=== PATIENT | female | born 1960 | race Caucasian/White ===

== ENCOUNTER → 2018-03-24 | Outpatient (CLI) | payer OTHER ==
--- NOTE | 2018-03-24 10:00 | BD ---
EXAMINATION TYPE: Axial Bone Density DATE OF EXAM: 03/24/2018 COMPARISON: 09.15.2004 CLINICAL HISTORY: 57 YR OLD FEMALE.....ICD-10 CODE: POST ELIANA W/O HRT Height: 58 Weight: 99 FRAX RISK QUESTIONS: Secondary Osteoporosis: YES 3. Menopause before 45: YES, AT 41 Current Tobacco Use: YES, 1/2 PAC DAILY RISK FACTORS HISTORY OF: Family History of Osteoporosis: NONE KNOWN Active: YES Diet low in dairy products/other sources of calcium: Postmenopausal woman: YES AT AGE 41, TOTAL HYST BY THAT TIME Take estrogen and/or progesterone medications: HORMONES IN PAST FOR 1 YR Lost more than 2 inches in height since high school: MEDICATIONS: Thyroid Medications: YES, SYNTHROID, FOR APROX 8-10 YRS Additional Medications: BP MEDS, VIT D AND CALCIUM, Additional History: HYPERTENSION EXAM MEASUREMENTS: Bone mineral densitometry was performed using the [employer] System. Bone mineral density as measured about the Lumbar spine is: ----- L1-L4(G/cm2): 1.308 T Score Values are as follows: ----- L1: 0.1 ----- L2: 0.8 ----- L3: 1.5 ----- L4: 1.4 ----- L1-L4: 1.1 Bone mineral density has: Increased 6.8% since study of: 09.15.2004 Bone mineral density about the R hip (g/cm2): 1.027 Bone mineral density about the L hip (g/cm2): 1.035 T Score values are as follows: -----R Neck: -0.7 -----L Neck: -0.2 -----R Total: 0.2 -----L Total: 0.2 Bone mineral density has: Increased 3.9% since study of: 09.15.2004 FRAX%S: THERE IS A 5.0% CHANCE OF A MAJOR OSTEOPOROTIC FX AND A 0.3% FOR HIP FX....PROBABILITY OF FX IN 10 YRS TIME IMPRESSION: Normal (Values between +1 and -1 indicate normal bone mass). Consider repeating this study in 5 year s or sooner if there is some new clinical indication. NOTE: T-SCORE=SD OF THE YOUNG ADULT MEAN.
--- NOTE | 2018-03-27 14:09 | MM ---
Reason for exam: screening (asymptomatic). Last mammogram was performed 1 year and 8 months ago. History: Patient is postmenopausal and is nulliparous. Taking estrogen for 1 year beginning at age 49. Physical Findings: A clinical breast exam by your physician is recommended on an annual basis and results should be correlated with mammographic findings. MG Screening Mammo w CAD Bilateral CC and MLO view(s) were taken. Prior study comparison: August 03, 2016, bilateral MG screening mammo w CAD. April 13, 2012, bilateral digital screening mammo w/CAD. The breast tissue is extremely dense which could obscure a lesion on mammography. No significant changes when compared with prior studies. ASSESSMENT: Benign, BI-RAD 2 RECOMMENDATION: Routine screening mammogram of both breasts in 1 year.
== END | disposition home or self-care (01) ==
LOC: RADMAMWWP 07:58
PROVIDERS: ATTEND Family Medicine
DX: Z12.31 Encounter for screening mammogram for malignant neoplasm of breast (principal); Z13.820 Encounter for screening for osteoporosis
CPT/HCPCS: 77067; 77080

== ENCOUNTER → 2019-06-27 | Outpatient (CLI) | payer OTHER ==
--- NOTE | 2019-06-27 10:01 | US ---
EXAMINATION TYPE: US renal artery duplex complet DATE OF EXAM: 06/27/2019 COMPARISON: NONE CLINICAL HISTORY: I10 Hypertension. Pt states HTN x many years MEASUREMENTS: RENAL SIZE: Rt Kidney: 10.3 x 4.0 x 4.9 cm Lt Kidney: 9.2 x 5.2 x 4.1 cm RESISTANCE INDEX Right: 0.6 Left: 0.7 RA/AO RATIO (< 3.5 ) Right: 3.4 Left: 4.0 RA VELOCITY ( < 180 cm/s) Right: 145.3 Left: 184.6 Diffuse marked atherosclerosis of aorta, left mid renal artery stenosis with highest velocity >180 cm/s (184.6), left RA/AO ratio also abnormal at 4.0 (normal < 3.5) . Incidentally noted simple appe aring left renal cyst measuring 1.7 x 1.2 x 1.5 cm. Additional smaller probable cyst measuring 1.1 x 0.9 x 0.9 cm. IMPRESSION: 1. Findings compatible with renal arterial stenosis on the left with highest velocity in the mid left renal artery. 2. No sonographic evidence of renal arterial stenosis on the right. 3. Severe atherosclerosis of the abdominal aorta. 4. Left renal cyst and smaller probable second left renal cyst.
== END | disposition home or self-care (01) ==
LOC: RADUSWWP 08:57
PROVIDERS: ATTEND Family Medicine
DX: I70.0 Atherosclerosis of aorta (principal); N28.1 Cyst of kidney, acquired; I10 Essential (primary) hypertension
CPT/HCPCS: 93975

== ENCOUNTER → 2019-12-31 | Outpatient (CLI) | payer OTHER | END | disposition home or self-care (01) | CPT/HCPCS: 74174; Q9967 ==

== ENCOUNTER → 2020-07-07 | Outpatient (CLI) | payer OTHER ==
--- NOTE | 2020-07-08 11:45 | MM ---
Reason for exam: screening (asymptomatic). Last mammogram was performed 2 years and 3 months ago. History: Patient is postmenopausal and is nulliparous. Taking estrogen for 1 year beginning at age 49. Physical Findings: A clinical breast exam by your physician is recommended on an annual basis and results should be correlated with mammographic findings. MG Screening Mammo w CAD Bilateral CC and MLO view(s) were taken. Prior study comparison: March 24, 2018, bilateral MG screening mammo w CAD. August 03, 2016, bilateral MG screening mammo w CAD. The breast tissue is heterogeneously dense. This may lower the sensitivity of mammography. No significant changes when compared with prior studies. ASSESSMENT: Benign, BI-RAD 2 RECOMMENDATION: Routine screening mammogram of both breasts in 1 year.
== END | disposition home or self-care (01) ==
LOC: RADMAMWWP 07:59
PROVIDERS: ATTEND Family Medicine
DX: Z12.31 Encounter for screening mammogram for malignant neoplasm of breast (principal)
CPT/HCPCS: 77067

== ENCOUNTER → 2021-08-31 | Outpatient (CLI) | payer OTHER ==
--- NOTE | 2021-09-02 10:24 | MM ---
Reason for exam: screening (asymptomatic). Last mammogram was performed 1 year and 2 months ago. History: Patient is postmenopausal and is nulliparous. Taking estrogen for 1 year beginning at age 49. Physical Findings: A clinical breast exam by your physician is recommended on an annual basis and results should be correlated with mammographic findings. MG Screening Mammo w CAD Bilateral CC and MLO view(s) were taken. Prior study comparison: July 07, 2020, bilateral MG screening mammo w CAD. March 24, 2018, bilateral MG screening mammo w CAD. The breast tissue is heterogeneously dense. This may lower the sensitivity of mammography. There is no discrete abnormality. ASSESSMENT: Negative, BI-RAD 1 RECOMMENDATION: Routine screening mammogram of both breasts in 1 year.
== END | disposition home or self-care (01) ==
LOC: RADMAMWWP 14:24
PROVIDERS: ATTEND Family Medicine
DX: Z12.31 Encounter for screening mammogram for malignant neoplasm of breast (principal)
CPT/HCPCS: 77067

== ENCOUNTER → 2022-10-18 | Outpatient (CLI) | payer OTHER ==
--- NOTE | 2022-10-18 16:26 | MM ---
Reason for Exam: Screening (asymptomatic). Last mammogram was performed 1 year(s) and 2 month(s) ago. Patient History: Menarche at age 15. Patient has no children. Left ovary removed at age 41. Right ovary removed at age 41. Hysterectomy at age 41. Postmenopausal. Currently using Estrogen, beginning at age 49 for 1 year. Risk Values: Shanda 5 year model risk: 1.6%. NCI Lifetime model risk: 8.1%. Prior Study Comparison: 03/24/2018 Bilateral Screening Mammogram, [facility]. 07/07/2020 Bilateral Screening Mammogram, [facility]. 08/31/2021 Bilateral Screening Mammogram, [facility]. Tissue Density: The breast tissue is heterogeneously dense. This may lower the sensitivity of mammography. Findings: Analyzed By CAD. There is no suspicious group of microcalcifications or new suspicious mass in either breast. Overall Assessment: Negative, BI-RAD 1 Management: Screening Mammogram of both breasts in 1 year. A clinical breast exam by your physician is recommended on an annual basis and results should be correlated with mammographic findings. Electronically signed and approved by: Tristan Camargo M.D.
== END | disposition home or self-care (01) ==
LOC: RADMAMWWP 07:09
PROVIDERS: ATTEND Family Medicine
DX: Z12.31 Encounter for screening mammogram for malignant neoplasm of breast (principal); Z78.0 Asymptomatic menopausal state
CPT/HCPCS: 77063; 77067

== ENCOUNTER → 2023-12-02 | Outpatient (CLI) | payer OTHER ==
--- NOTE | 2023-12-02 19:08 | MM ---
Reason for Exam: Screening (asymptomatic). Last mammogram was performed 1 year(s) and 1 month(s) ago. Patient History: Menarche at age 15. Patient has no children. Left ovary removed at age 41. Right ovary removed at age 41. Hysterectomy at age 41. Postmenopausal. Currently using Estrogen, beginning at age 49 for 1 year. Niece had breast cancer, age 40. Risk Values: Shanda 5 year model risk: 1.6%. NCI Lifetime model risk: 7.9%. Prior Study Comparison: 07/07/2020 Bilateral Screening Mammogram, [facility]. 08/31/2021 Bilateral Screening Mammogram, [facility]. 10/18/2022 Bilateral MG 3D screening mammo w/cad, [facility]. Tissue Density: The breast tissue is heterogeneously dense. This may lower the sensitivity of mammography. Findings: Analyzed By CAD. There is an area of asymmetric density superior right MLO view and anterior to middle depth which is more defined. This may represent superimposition shadow but further evaluation is recommended. Otherwise, no significant change. Overall Assessment: Incomplete: need additional imaging evaluation, BI-RAD 0 Management: Special View Mammogram of the right breast. Diagnostic Breast Ultrasound of the right breast. Additional views to include spot 3-D MLO and 3-D lateral views. Subsequent superior half right breast ultrasound.. [facility] will attempt to contact patient to return for supplemental views and ultrasound if indicated. Electronically signed and approved by: Maria Fernanda Lopez M.D. Radiologist
== END | disposition home or self-care (01) ==
LOC: RADMAMWWP 08:01
PROVIDERS: ATTEND Family Medicine
DX: Z12.31 Encounter for screening mammogram for malignant neoplasm of breast (principal); Z78.0 Asymptomatic menopausal state; Z85.3 Personal history of malignant neoplasm of breast
CPT/HCPCS: 77063; 77067

== ENCOUNTER → 2023-12-07 | Outpatient (CLI) | payer OTHER ==
--- NOTE | 2023-12-07 10:18 | MM ---
Reason for Exam: Follow-up at short interval from prior study. Last screening mammogram was performed less than 1 month ago. Patient History: Menarche at age 15. Patient has no children. Left ovary removed at age 41. Right ovary removed at age 41. Hysterectomy at age 41. Postmenopausal. Currently using Estrogen, beginning at age 49 for 1 year. Niece had breast cancer, age 40. Risk Values: Shanda 5 year model risk: 1.6%. NCI Lifetime model risk: 7.9%. Tissue Density: Right: The breast tissue is heterogeneously dense. This may lower the sensitivity of mammography. Findings: Analyzed By CAD. The questioned area of central superior asymmetric density on the MLO view does not persist on additional views. Findings compatible with superimposition shadow. Overall Assessment: Benign, BI-RAD 2 Management: Screening Mammogram of both breasts in 1 year. Findings compatible with superimposition shadow. No ultrasound needed. Results were given to the patient verbally at the time of exam. Patient should continue monthly self-breast exams. A clinical breast exam by your physician is recommended on an annual basis. This exam should not preclude additional follow-up of suspicious palpable abnormalities. Note on Shanda scores and lifetime risk: 1. A Shanda score greater than 3% is considered moderate risk. If this is the case, consider specialist referral to assess eligibility for a risk reducing agent. 2. If overall lifetime risk for the development of breast cancer is 20% or higher, the patient may qualify for future screening with alternating mammogram and breast MRI. Electronically signed and approved by: Maria Fernanda Lopez M.D. Radiologist
== END | disposition home or self-care (01) ==
LOC: RADMAMWWP 09:39
PROVIDERS: ATTEND Family Medicine
DX: R92.331 Mammographic heterogeneous density, right breast (principal); Z78.0 Asymptomatic menopausal state
CPT/HCPCS: 77061; 77065

== ENCOUNTER → 2025-01-30 | Outpatient (CLI) | payer BC ==
--- NOTE | 2025-01-30 07:32 | MM ---
Reason for Exam: Screening (asymptomatic). Last mammogram was performed 1 year(s) and 2 month(s) ago. Patient History: Menarche at age 15. Patient has no children. Left ovary removed at age 41. Right ovary removed at age 41. Hysterectomy at age 41. Postmenopausal. Currently using Estrogen, beginning at age 49 for 1 year. Niece had breast cancer, age 40. Risk Values: Shanda 5 year model risk: 1.7%. NCI Lifetime model risk: 7.7%. Prior Study Comparison: 10/18/2022 Bilateral MG 3D screening mammo w/cad, [facility]. 12/02/2023 Bilateral MG 3D screening mammo w/cad, [facility]. 12/07/2023 Right MG 3D work up w/cad RT, [facility]. Tissue Density: There are scattered areas of fibroglandular density. Findings: Analyzed By CAD. There is no suspicious group of microcalcifications or new suspicious mass in either breast. Overall Assessment: Negative, BI-RAD 1 Management: Screening Mammogram of both breasts in 1 year. . Patient should continue monthly self-breast exams. A clinical breast exam by your physician is recommended on an annual basis. This exam should not preclude additional follow-up of suspicious palpable abnormalities. Note on Shanda scores and lifetime risk: 1. A Shanda score greater than 3% is considered moderate risk. If this is the case, consider specialist referral to assess eligibility for a risk reducing agent. 2. If overall lifetime risk for the development of breast cancer is 20% or higher, the patient may qualify for future screening with alternating mammogram and breast MRI. [facility], , 01/30/2025 7:29 AM. Electronically signed and approved by: Edil Ramsey M.D. Radiologis
== END | disposition home or self-care (01) ==
LOC: RADMAMWWP 07:07
PROVIDERS: ATTEND Family Medicine
DX: Z12.31 Encounter for screening mammogram for malignant neoplasm of breast (principal); R92.323 Mammographic fibroglandular density, bilateral breasts; Z78.0 Asymptomatic menopausal state; Z80.3 Family history of malignant neoplasm of breast
CPT/HCPCS: 77067

== ENCOUNTER → 2025-01-30 | Outpatient (CLI) | payer BC ==
--- NOTE | 2025-01-30 09:10 | CTL ---
EXAMINATION TYPE: CT Low Dose Lung DATE OF EXAM: 01/30/2025 7:01 AM COMPARISON: None. CLINICAL INDICATION: Female, 64 years old with history of F17.210 nicotine dependence, PT SMOKES 1/2 PK/DAY X 40 YRS, History of tobacco use. TECHNIQUE: Low dose computed tomography scan was performed through the chest at 1 mm thick sections a nd reconstructed images in multiple planes at 1 mm and [address] DLP: 38.40 mGycm, CT CTDI: 1.10 mGy, Automated exposure control for dose reduction was used. CT DIAGNOSTIC QUALITY: Satisfactory FINDINGS: The heart is normal size without pericardial effusion. LAD and circumflex coronary calcifications are present. Ectatic ascending aorta 3.8 cm. Scattered mild atherosclerotic calcifications throughout the aorta. C onventional arch vessel branching anatomy. No thoracic lymphadenopathy by CT size criteria. There is [id number] diffuse bronchial wall thickening. Some left apical pleural parenchymal sca rring. Mild emphysematous change. No consolidation or pleural effusion. A few scattered tiny 4 mm and smaller pulmonary nodules on baseline screening. No suspicious greater than 5 mm pulmonary nodule is identified. Visualized upper abdomen shows a 2.0 cm exophytic cyst lateral left kidney. Bones: Moderate focal degenerative disc disease anteriorly at T8-T9. IMPRESSION: 1. Lung-RADS 2, benign. A few scattered 4 mm and smaller pulmonary nodules on baseline screening. 2. COPD with mild emphysema. Recommend smoking cessation. 3. LAD and circumflex coronary artery calcifications. CT LUNG RAD AND CT CHEST RECOMMENDATION: Lung-Rad 2 Benign Appearance or Behavior: Continue annual sc reening with LDCT in 12 months. S Modifier (other clinically significant findings): None [facility], , 01/30/2025 9:08 AM
== END | disposition home or self-care (01) ==
LOC: RADCTMAIN 06:40
PROVIDERS: ATTEND Family Medicine
DX: Z12.2 Encounter for screening for malignant neoplasm of respiratory organs (principal); F17.210 Nicotine dependence, cigarettes, uncomplicated; J44.9 Chronic obstructive pulmonary disease, unspecified; J43.9 Emphysema, unspecified; I25.10 Atherosclerotic heart disease of native coronary artery without angina pectoris; R91.8 Other nonspecific abnormal finding of lung field
CPT/HCPCS: 71271